=== PATIENT | female | born 1990 | race Caucasian/White ===

== ENCOUNTER 2018-12-18 03:25 | Inpatient (IN) | payer OTHER, SELFPAY ==
[2018-12-18 03:45] VITALS: BMI 27.3
[2018-12-18] MEDS: Lactated Ringers 1,000 ML 50 ML IV ×2 (03:45→04:50)
[2018-12-18 04:16] LABS: Absolute Lymphocyte Count 1.46 X10^3/ul (0.83-4.51); Absolute Neutrophil Count 11.1 X10^3/uL (2.0-7.7); Basophil# 0.02 X10^3/uL; Basophil% 0.1 % (0-1); Eosinophil# 0.07 X10^3/uL; Eosinophils% 0.5 % (0-5); Hematocrit 37.7 % (37-47); Hemoglobin 12.6 g/dl (12.0-15.0); Lymphocyte # 1.46 X10^3/ul (4.0); Lymphocyte % 10.9 % (19-41); Mean Corp Hgb Conc 33.4 g/gl (32-36); Mean Corpuscular Hgb 30.1 pg (27.0-32.0); Mean Platelet Vol. 10.3 fl (6.2-12.0); Monocyte# 0.77 X10^3/uL; Monocyte% 5.7 % (0-10); Neutrophil # 11.08 X10^3/uL (2.7-7.7); Neutrophil % 82.4 % (47-70); Platelet Count 194 K/mm3 (150-450); RBC Distribution Width CV 12.6 % (11.6-14.6); RBC Distribution Width SD 40.9 fl (35.1-43.9); Red Blood Count 4.19 M/mm3 (4.2-5.4); White Blood Count 13.5 K/mm3 (4.4-11.0)
[2018-12-18 04:17] LABS: POSITIVE COUNT NO; POSITIVE DIFFERENTIAL NO; POSITIVE MORPHOLOGY NO
--- NOTE | 2018-12-18 04:52 | PCM.HP.OB ---
History Date of Admission: 12/18/18 Final FELA: 12/19/18 Gestational age: 39 Weeks and 6 Days History of this : This is a 28 year-old, G [], P [], at 39 weeks gestational age. 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 Admit to L&D Getting epidural now GBS negative EFW - less than 4500g, patient with adequate pelvis Elevated BP - likely d/t pain, check preE labs Routine care
--- NOTE | 2018-12-18 04:56 | HP.PCM_ITS ---
History Date of Admission: 12/18/18 Final FELA: 12/19/18 Gestational age: 39 Weeks and 6 Days History of this : This is a 28 year-old, G [], P [], at 39 weeks gestational age. 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 Admit to L&D Getting epidural now GBS negative EFW - less than 4500g, patient with adequate pelvis Elevated BP - likely d/t pain, check preE labs Routine care
[2018-12-18] MEDS: fentaNYL-bupivacaine (epidural) 100 ML BAG EPIDURAL (05:02)
[2018-12-18 05:55] LABS: Protein, Urine (Random) 15.3 mg/dL (<11.9); Protein:Creat Ratio 187 mg/g CRE (0-200)
--- NOTE | 2018-12-18 06:11 | PCM.OPRPT ---
Vaginal Delivery Maternal Presentation: Active Labor Amniotic Membrane Rupture Type: Spontaneous Amniotic Fluid Description: Clear Final FELA: 12/19/18 Gestational age: 39 Weeks and 6 Days Date of Procedure: 12/18/18 Pre-Operative Diagnosis: Labor Post-Operative Diagnosis: Labor Surgery/ Procedure Performed: Spontaneous Vaginal Delivery Type of Anesthesia: Epidural Description of Procedure: Patient in stirrups, prepped & draped when c/c/+1. Patient pushed well to deliver head. head gently guided to allow delivery of anterior & posterior shoulders. No excess traction placed on head. Body delivered & placed on maternal abdomen. 3VC clamped & cut in delayed fashion. Placenta delivered with gentle traction & good uterine tone obtained. Presentation: MIGUEL Placental Delivery Description: Expressed Placenta Disposition: [facility] Cord Vessel Description: 3 Vessels Cord Entanglement: Around neck x 1, loose Estimated Blood Loss: 200ml A gender: Male (1 minute): 8 (5 minute): 9 Episiotomy Description: None Laceration: None Medications given after delivery: IV Pitocin Complications: None
[2018-12-18 06:35] LABS: Partial Thromboplast Time 26.4 Seconds (24.1-36.2); Prothrombin Time (Protime)PT. 12.6 SECONDS (11.7-14.9)
[2018-12-18 06:37] LABS: AST(SGOT) 22 U/L (15-37); Alanine Aminotransfer ALT/SGPT 21 U/L (13-56); Creatinine, Serum 0.82 mg/dL (0.55-1.02); EST Glomerular Filtration Rate 88 mL/min (>60); Est Glom Filt Rate - Afr Amer 106 mL/min (>60); Estimated Creatinine Clearance 83.74 ml/min; Uric Acid 4.7 mg/dL (2.6-6.0)
[2018-12-18] MEDS: Oxytocin 30 units/NS 500 ml 30 UNITS/500 ML IV.SOLN 334 UNITS IV (07:00)
[2018-12-18] MEDS: Ibuprofen 600 MG Tablet PO ×2 (11:45→21:43)
[2018-12-18 11:51] VITALS: BP 116/83; PULSE 75; RESP 18; TEMP 36.8
[2018-12-18] MEDS: Methylergonovine 0.2 MG/ML Ampul IM (15:07)
--- NOTE | 2018-12-18 16:04 | NURSING ---
at 1500, Pt stated I've been trickling constantly now. Fundus noted to be boggy, firmed slightly with massage, pt passed clot that along with lochia on pad weighed 180cc. Fundus became boggy again after massage. Methergine given. See medication record.
--- NOTE | 2018-12-18 16:13 | NURSING ---
at 1520, PPH cart to room as a precaution due to increased bleeding. 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
--- NOTE | 2018-12-18 17:27 | NURSING ---
at 1615 pad changed for 59cc lochia. fundus remains firm at -2
--- NOTE | 2018-12-18 18:16 | PCM.PN.BLA ---
Progress Note At bedside to check on pt's bleeding. She is feeling well. No lightheaded, dizziness, CP, SOB, cramping. FF@ U-2 and no bleeding with fundal pressure. Pad has had pad on for 30 min and has minimal blood present. CBC in AM.
[2018-12-18 18:52] VITALS: BP 125/84; PULSE 77; RESP 18
[2018-12-18 20:25] VITALS: BP 113/77; PULSE 86; RESP 17; TEMP 36.8; O2SAT 97
[2018-12-18 23:50] VITALS: BP 116/77; PULSE 70; RESP 16; TEMP 36.6; O2SAT 97
[2018-12-19 03:30] VITALS: BP 112/76; PULSE 78; RESP 16; TEMP 36.8; O2SAT 96
[2018-12-19 04:53] LABS: Hematocrit 33.9 % (37-47); Hemoglobin 11.4 g/dl (12.0-15.0); Mean Corp Hgb Conc 33.6 g/gl (32-36); Mean Corpuscular Hgb 30.6 pg (27.0-32.0); Mean Corpuscular Volume 90.9 fL (81-99); Mean Platelet Vol. 10.1 fl (6.2-12.0); Platelet Count 173 K/mm3 (150-450); RBC Distribution Width CV 12.9 % (11.6-14.6); RBC Distribution Width SD 42.6 fl (35.1-43.9); Red Blood Count 3.73 M/mm3 (4.2-5.4); Scan Indicated on CBC? Y/N NO; White Blood Count 10.6 K/mm3 (4.4-11.0)
[2018-12-19 08:56] VITALS: BP 110/77; PULSE 69; RESP 16; TEMP 36.7; O2SAT 97
--- NOTE | 2018-12-19 10:55 | PCM.PN.OB ---
Subjective: Patient doing well. She feels her bleeding has lessened and is normal lochia. No lightheadedness, dizziness, CP, SOB, leg pain. Yas reg diet without N/V. Ambulating and voiding without difficulty. She desires to go home today - Physical Exam General: Alert, No apparent distress HEENT: Atraumatic Lungs: - - No increased resp effort Abdomen: Soft, Non Tender, - - FF@U-2 Extremities: No edema, No Calf Tenderness Skin: No rashes Neurological: Neuro grossly intact Psych/Mental Status: Normal Affect, Appropriate Vital Signs Temp Pulse Resp BP Pulse Ox 98.0 F 69 16 110/77 97 12/19/18 08:56 12/19/18 08:56 12/19/18 08:56 12/19/18 08:56 12/19/18 08:56 Oxygen Delivery Method Room Air Weight: 154 lb 5.177 oz Body Mass Index (BMI) 27.3 Intake and Output for Last 24 Hours 12/17/18 12/18/18 12/19/18 23:59 23:59 23:59 Output Total 1050 / 1050 Balance -1050 / -1050 Laboratory Tests Past 24 Hrs 12/19/18 04:41 WBC 10.6 RBC 3.73 L Hgb 11.4 L Hct 33.9 L MCV 90.9 MCH 30.6 MCHC 33.6 RDW 12.9 RDW Differential 42.6 Plt Count 173 MPV 10.1 Medical Necessity - Tobacco Use Smoking Status: Never smoker Assessment/Plan day #1 - Doing well - Desires to go home - D/c home today. Discussed follow up
--- NOTE | 2018-12-19 10:57 | PCM.DCVAG ---
Discharge Diet: No Restrictions Discharge Activity: Return to Normal Activity, No Restrictions, May Drive, May Shower May resume sexual activity in: 6 weeks Weight Bearing Status: Weight bearing as tolerated, Full weight bearing Lifting Restrictions: None Call your doctor if you observe: Fever of 101 or Higher, Inability to urinate, Inability to have a bowel movement, Using more than one pad per hour, Shortness of breath, Dizziness, Fainting spells, Chest pain, Increased palpitations (irregular heartbeat), Calf discomfort, Uncontrolled pain Instructions: After a Vaginal Additional Instructions: If you experience any of the following, contact your healthcare provider. Bleeding that soaks a pad every hour for 2 hours Fever 100.4 or higher Unrelieved incision or abdominal pain Swelling, redness, discharge or bleeding from your incision or episiotomy site Your incision begins to separate Problems urinating (including inability to urinate or burning while urinating). Visual changes Severe headache Flu-like symptoms Pain or redness in one of both of your breasts Pain, warmth, tenderness or swelling in your legs, especially the calf area Frequent nausea and vomiting Symptoms of depression or anxiety If you experience any of the following, call 911 or go to the nearest Emergency Room. Chest pain Problems breathing Seizure activity Partial or complete paralysis of a body part, slurred speech, weakness or drooping of the face, or a sudden inability to walk or hold your balance Allergies/Adverse Reactions: Allergies No Known Allergies Allergy (Verified 12/18/18 04:03) Medications to take at Discharge Vits [Prenatabs FA ] 1 tablet PO DAILY 08/17/14 When: 6 week visit Primary Care Physician: Julio César Boyd [Primary Care Provider] - Test Results: Test results from this visit will be discussed in further detail at your follow-up appointment, if applicable. Proposed Discharge Date: 12/19/18
--- NOTE | 2018-12-19 11:00 | DCINST_ITS ---
Discharge Diet: No Restrictions Discharge Activity: Return to Normal Activity, No Restrictions, May Drive, May Shower May resume sexual activity in: 6 weeks Weight Bearing Status: Weight bearing as tolerated, Full weight bearing Lifting Restrictions: None Call your doctor if you observe: Fever of 101 or Higher, Inability to urinate, Inability to have a bowel movement, Using more than one pad per hour, Shortness of breath, Dizziness, Fainting spells, Chest pain, Increased palpitations (irregular heartbeat), Calf discomfort, Uncontrolled pain Instructions: After a Vaginal Additional Instructions: If you experience any of the following, contact your healthcare provider. * Bleeding that soaks a pad every hour for 2 hours * Fever 100.4 or higher * Unrelieved incision or abdominal pain * Swelling, redness, discharge or bleeding from your incision or episiotomy site * Your incision begins to separate * Problems urinating (including inability to urinate or burning while urinating). * Visual changes * Severe headache * Flu-like symptoms * Pain or redness in one of both of your breasts * Pain, warmth, tenderness or swelling in your legs, especially the calf area * Frequent nausea and vomiting * Symptoms of depression or anxiety If you experience any of the following, call 911 or go to the nearest Emergency Room. * Chest pain * Problems breathing * Seizure activity * Partial or complete paralysis of a body part, slurred speech, weakness or drooping of the face, or a sudden inability to walk or hold your balance Allergies/Adverse Reactions: Allergies No Known Allergies Allergy (Verified 12/18/18 04:03) Medications to take at Discharge Vits [Prenatabs FA ] 1 tablet PO DAILY 08/17/14 When: 6 week visit Primary Care Physician: Julio César Boyd [Primary Care Provider] - Test Results: Test results from this visit will be discussed in further detail at your follow- up appointment, if applicable. Proposed Discharge Date: 12/19/18
[2018-12-19 12:30] VITALS: BP 107/63; PULSE 90; RESP 16; TEMP 36.4; O2SAT 97
[2018-12-19 14:00] VITALS: BP 103/71; PULSE 107; RESP 16; TEMP 36.4; O2SAT 97
[2018-12-19 14:17] VITALS: BP 110/77; PULSE 69; RESP 16; TEMP 36.4; O2SAT 97
== END 2018-12-19 14:40 | disposition home or self-care (01) | DRG 807 ==
PROVIDERS: Obstetrics & Gynecology; Admitting Provider Obstetrics & Gynecology; Family Provider Family Medicine; PCP Family Medicine; Referring Provider Obstetrics & Gynecology; Visit Provider Obstetrics & Gynecology
DX: O69.81X0 Labor and delivery complicated by cord around neck, without compression, not applicable or unspecified (principal); Z37.0 Single live birth; Z3A.39 39 weeks gestation of pregnancy
CPT/HCPCS: 59025; 59050; 82565; 82570; 84156; 84450; 84460; 84550; 85025; 85027; 85610; 85730; 86850; 86900; 99218; J7120; G0378